=== PATIENT | female | born 1945 | race Hispanic/Latino ===

== ENCOUNTER 2017-06-04 12:24 | Outpatient (CLI) | payer MEDICARE ==
--- NOTE | 2017-06-04 12:51 | XRay Report ---
Right hand 3 views. History: Hand pain. Findings: There are no fractures or other acute findings. There is moderate narrowing of the first carpometacarpal joint. There is mild uniform narrowing of the DIP and PIP joints. There is no periarticular osteoporosis. No erosive changes are seen. Impression: No acute findings. Diffuse changes related to osteoarthritis, most pronounced at the first carpometacarpal joint.
== END 2017-06-04 12:25 | disposition home or self-care (01) ==
LOC: SPVIMAG 12:24
PROVIDERS: ATTEND Orthopaedic Surgery Sports Medicine
DX: M18.9 Osteoarthritis of first carpometacarpal joint, unspecified (principal)